=== PATIENT | male | born 1980 | race Caucasian/White ===

== ENCOUNTER 2022-06-29 17:22 | Emergency (ER) | payer OTHER | END 2022-06-29 19:19 | disposition left against medical advice (07) | LOC: ED 17:22 | DX: S81.011A Laceration without foreign body, right knee, initial encounter (principal); Z53.21 Procedure and treatment not carried out due to patient leaving prior to being seen by health care provider; X58.XXXA Exposure to other specified factors, initial encounter; Y93.89 Activity, other specified; Y92.89 Other specified places as the place of occurrence of the external cause; Y99.8 Other external cause status ==